=== PATIENT | female | born 1985 | race Caucasian/White ===

== ENCOUNTER → 2016-04-11 | Emergency (ER) | payer OTHER ==
--- NOTE | 2016-04-11 11:09 | ED NURSING NOTES ---
Clinical Report - Nurses [facility] [address] [place] [address] 04/11/2016 9:29 Patient: CARLOS MANUEL LUGO TRIAGE Triage time 09:41. Acuity: LEVEL 4. Chief Complaint: (Non-prod cough x4 days, occasional mild SOB, anterior chest wall pain with coughing. Pt reports fever for the past 2 days, genreralized body aches.). 09:44 04/11/16. SEPSIS SCREEN: Sepsis Screen. Negative (no infection suspected/documented). LINDSEY COMA SCORE: Lindsey Coma Scale: 15- eyes open spontaneously (4); best verbal response- oriented x 4 (5); best motor response- obeys commands (6). --09:46 Saman Walker R.N. 09:41 04/11/16. BP: 130/85. HR: 106. RR: 20. O2 saturation: 100% on room air. Temp: 98.5 F (oral). Pain level now: 09/29. --09:46 Saman Wakler R.N. Weight: 49.8 kg stated. Height/Length: 66 inches Per Patient. BMI: 17.7. --09:45 Saman Walker R.N. Medications Depo-Provera Intramuscular (Once every three months). --09:44 Saman Walker R.N. Allergies NKDA. --09:44 Saman Walker R.N. History Arrived by private vehicle. Historian: patient. 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 PAST MEDICAL HX: Last normal menstrual period was 3 weeks ago. SOCIAL HX: Light tobacco smoker (cigarette)- less than 1/2 a pack per day. No alcohol use or drug use. She has had contact with a sick family member. ABUSE ASSESSMENT: No report of abuse. --09:46 Saman Walker R.N. PROBLEMS: Immunizations. LNMP - Last Normal Menstrual Period. OB History. --09:44 Saman Walker R.N. Interventions To treatment room. --09:46 Saman Walker R.N. PHYSICAL ASSESSMENT 09:48 04/11/16. Ambulatory to room. GENERAL / NEURO / PSYCH: Alert. Oriented X 4. Appears in pain. HEENT: Pupils equal, round and reactive to light. ( sore throat). Mucous membranes are pink. RESPIRATORY: Respirations not labored. Chest wall tenderness (when coughing). Breath sounds within normal limits. ( sinus drainage & congestion). CVS: Capillary refill less than 2 seconds. Pulses within normal limits. GI / : Abdomen soft and nontender and normal bowel sounds. SKIN: Skin intact. Skin is warm and dry. Normal skin turgor. --09:48 Saman Walker R.N. NURSING PROGRESS NOTES 09:48 04/11/16. Reassurance given. Two patient identifiers checked. Call light placed in reach. Bed placed in lowest position. Brakes of bed on. Patient ready for evaluation- chart flagged. --09:48 Saman Walker R.N. late entry -10:13. Head of bed elevated. Reassurance given. The patient is resting quietly. Call light placed in reach. Bed placed in lowest position. Brakes of bed on. ( Obtained Strep and Flu swabs and sent to the Lab.). --11:35 Saman Walker R.N. DISPOSITION / DISCHARGE Condition at departure: improved. No learning barriers present. Discharge instructions provided and reviewed with the patient. Reviewed warnings. Reviewed medication(s). Treatments reviewed. Reviewed referrals. Work note given. Patient verbalized understanding. Written instructions provided in Tongan. The patient was discharged home. She left the Emergency Department ambulatory and via private vehicle. Patient driving. --11:24 Wade Gibbs R.N. 11:22 04/11/16. BP: 117/74. HR: 96. RR: 18. O2 saturation: 98%. Temp: 98.9 F. Pain level now 08/30. --11:24 Wade Gibbs R.N. Departure time: 11:Apr 11 2016. --11:24 Wade Gibbs R.N. Locked/Released at 04/11/2016 11:36 by Saman Walker R.N.
--- NOTE | 2016-04-11 11:09 | ED NURSING NOTES ---
Clinical Report - Nurses [facility] [address] [place] [address] 04/11/2016 9:29 Patient: CARLOS MANUEL LUGO TRIAGE Triage time 09:41. Acuity: LEVEL 4. Chief Complaint: (Non-prod cough x4 days, occasional mild SOB, anterior chest wall pain with coughing. Pt reports fever for the past 2 days, genreralized body aches.). 09:44 04/11/16. SEPSIS SCREEN: Sepsis Screen. Negative (no infection suspected/documented). LINDSEY COMA SCORE: Lindsey Coma Scale: 15- eyes open spontaneously (4); best verbal response- oriented x 4 (5); best motor response- obeys commands (6). --09:46 Saman Walker R.N. 09:41 04/11/16. BP: 130/85. HR: 106. RR: 20. O2 saturation: 100% on room air. Temp: 98.5 F (oral). Pain level now: 09/29. --09:46 Saman Walker R.N. Weight: 49.8 kg stated. Height/Length: 66 inches Per Patient. BMI: 17.7. --09:45 Saman Walker R.N. Medications Depo-Provera Intramuscular (Once every three months). --09:44 Saman Walker R.N. Allergies NKDA. --09:44 Saman Walker R.N. History Arrived by private vehicle. Historian: patient. 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 PAST MEDICAL HX: Last normal menstrual period was 3 weeks ago. SOCIAL HX: Light tobacco smoker (cigarette)- less than 1/2 a pack per day. No alcohol use or drug use. She has had contact with a sick family member. ABUSE ASSESSMENT: No report of abuse. --09:46 Saman Walker R.N. PROBLEMS: Immunizations. LNMP - Last Normal Menstrual Period. OB History. --09:44 Saman Walker R.N. Interventions To treatment room. --09:46 Saman Walker R.N. PHYSICAL ASSESSMENT 09:48 04/11/16. Ambulatory to room. GENERAL / NEURO / PSYCH: Alert. Oriented X 4. Appears in pain. HEENT: Pupils equal, round and reactive to light. ( sore throat). Mucous membranes are pink. RESPIRATORY: Respirations not labored. Chest wall tenderness (when coughing). Breath sounds within normal limits. ( sinus drainage & congestion). CVS: Capillary refill less than 2 seconds. Pulses within normal limits. GI / : Abdomen soft and nontender and normal bowel sounds. SKIN: Skin intact. Skin is warm and dry. Normal skin turgor. --09:48 Saman Walker R.N. NURSING PROGRESS NOTES 09:48 04/11/16. Reassurance given. Two patient identifiers checked. Call light placed in reach. Bed placed in lowest position. Brakes of bed on. Patient ready for evaluation- chart flagged. --09:48 Saman Walker R.N. late entry -10:13. Head of bed elevated. Reassurance given. The patient is resting quietly. Call light placed in reach. Bed placed in lowest position. Brakes of bed on. ( Obtained Strep and Flu swabs and sent to the Lab.). --11:35 Saman Walker R.N. DISPOSITION / DISCHARGE Condition at departure: improved. No learning barriers present. Discharge instructions provided and reviewed with the patient. Reviewed warnings. Reviewed medication(s). Treatments reviewed. Reviewed referrals. Work note given. Patient verbalized understanding. Written instructions provided in Ecuadorean. The patient was discharged home. She left the Emergency Department ambulatory and via private vehicle. Patient driving. --11:24 Wade Gibbs R.N. 11:22 04/11/16. BP: 117/74. HR: 96. RR: 18. O2 saturation: 98%. Temp: 98.9 F. Pain level now 08/30. --11:24 Wade Gibbs R.N. Departure time: 11:Apr 11 2016. --11:24 Wade Gibbs R.N. Locked/Released at 04/11/2016 11:36 by Saman Walker R.N.
--- NOTE | 2016-04-11 11:09 | ED CLINICAL REPORT ---
Clinical Report - Physicians/Mid Levels [facility] [address] [place] [place] [address] 04/11/2016 9:29 Patient: CARLOS MANUEL LUGO Time Seen: 09:45; initial patient contact. Arrived- By private vehicle. Historian- patient. HISTORY OF PRESENT ILLNESS Chief Complaint: "FLU". This started about 4 days ago and is still present. Illness not described as mild. The patient has had a cough, chest discomfort, a sore throat, nasal congestion and sinus pressure. She has had sinus drainage, fever, chills, muscle aches and a nasal discharge. No sputum production, difficulty breathing, chest pain or ear pain. Additional history - No known contact with a sick individual. Similar symptoms previously: None. Recent medical care: Not recently seen/assessed. REVIEW OF SYSTEMS No headache, nausea, vomiting or diarrhea. All systems otherwise negative, except as recorded above. PAST HISTORY See nurses notes. Surgeries: No history of previous surgery. Additional Surgeries: no known surgeries. Medications: Depo-Provera Intramuscular (Once every three months). Allergies: NKDA. SOCIAL HISTORY Current every day smoker. No alcohol use. PHYSICAL EXAM Appearance: Alert. No acute distress. Head: Tenderness present to percussion/palpation of the sinuses. Eyes: Eyes normal inspection. ENT: Ears normal. Mild generalized pharyngeal erythema with right tonsillar swelling and left tonsillar swelling. Neck: No lymphadenopathy. CVS: Normal heart rate and rhythm. Heart sounds normal. Respiratory: No respiratory distress. Breath sounds normal. Skin: Skin warm and dry. Normal skin color. No rash. Extremities: Extremities exhibit normal ROM. No calf tenderness. No lower extremity edema. Neuro: Oriented X 3. LABS, X-RAYS, AND EKG Laboratory Tests: Culture, Strep Screen: (LESA: 04/11/2016 10:10) ( MsgRcvd 04/11/2016 10:33) Final results Test Result Flag Units (Reference) RAPID STREP SCREEN - THROAT DATE: 04/11/16 NEGATIVE SCREEN: RAPID STREP SCREEN NEGATIVE; CONFIRMATION TO FOLLOW Rapid Influenza Screen: (LESA: 04/11/2016 10:10) ( MsgRcvd 04/11/2016 10:42) Final results SPECIMEN DESCRIPTION: ... Test Result Flag Units (Reference) RAPID INFLUENZA SCREEN DATE: 04/11/16 INFLUENZA A: NEGATIVE SCREEN FOR INFLUENZA A INFLUENZA B: NEGATIVE SCREEN FOR INFLUENZA B . PROGRESS AND PROCEDURES Disposition: Discharged home in good condition. Condition: good. CLINICAL IMPRESSION Acute frontal sinusitis INSTRUCTIONS Prescription Medications: Zithromax Tri-Aram 500 mg tablets: Take according to package instructions. Total course 3 days. No refills. Substitution is permissible. Flonase nasal spray: 2 sprays to each nostril daily. Dispense one (1) unit. No refills. Substitution is permissible Follow-up: Follow up with your doctor in about three days. (Electronically signed by Ahmet Barrett Dr. 04/11/2016 21:56)
--- NOTE | 2016-04-11 11:09 | ED CLINICAL REPORT ---
Clinical Report - Physicians/Mid Levels [facility] [address] [place] [place] [address] 04/11/2016 9:29 Patient: CARLOS MANUEL LUGO Time Seen: 09:45; initial patient contact. Arrived- By private vehicle. Historian- patient. HISTORY OF PRESENT ILLNESS Chief Complaint: "FLU". This started about 4 days ago and is still present. Illness not described as mild. The patient has had a cough, chest discomfort, a sore throat, nasal congestion and sinus pressure. She has had sinus drainage, fever, chills, muscle aches and a nasal discharge. No sputum production, difficulty breathing, chest pain or ear pain. Additional history - No known contact with a sick individual. Similar symptoms previously: None. Recent medical care: Not recently seen/assessed. REVIEW OF SYSTEMS No headache, nausea, vomiting or diarrhea. All systems otherwise negative, except as recorded above. PAST HISTORY See nurses notes. Surgeries: No history of previous surgery. Additional Surgeries: no known surgeries. Medications: Depo-Provera Intramuscular (Once every three months). Allergies: NKDA. SOCIAL HISTORY Current every day smoker. No alcohol use. PHYSICAL EXAM Appearance: Alert. No acute distress. Head: Tenderness present to percussion/palpation of the sinuses. Eyes: Eyes normal inspection. ENT: Ears normal. Mild generalized pharyngeal erythema with right tonsillar swelling and left tonsillar swelling. Neck: No lymphadenopathy. CVS: Normal heart rate and rhythm. Heart sounds normal. Respiratory: No respiratory distress. Breath sounds normal. Skin: Skin warm and dry. Normal skin color. No rash. Extremities: Extremities exhibit normal ROM. No calf tenderness. No lower extremity edema. Neuro: Oriented X 3. LABS, X-RAYS, AND EKG Laboratory Tests: Culture, Strep Screen: (LESA: 04/11/2016 10:10) ( MsgRcvd 04/11/2016 10:33) Final results Test Result Flag Units (Reference) RAPID STREP SCREEN - THROAT DATE: 04/11/16 NEGATIVE SCREEN: RAPID STREP SCREEN NEGATIVE; CONFIRMATION TO FOLLOW Rapid Influenza Screen: (LESA: 04/11/2016 10:10) ( MsgRcvd 04/11/2016 10:42) Final results SPECIMEN DESCRIPTION: ... Test Result Flag Units (Reference) RAPID INFLUENZA SCREEN DATE: 04/11/16 INFLUENZA A: NEGATIVE SCREEN FOR INFLUENZA A INFLUENZA B: NEGATIVE SCREEN FOR INFLUENZA B . PROGRESS AND PROCEDURES Disposition: Discharged home in good condition. Condition: good. CLINICAL IMPRESSION Acute frontal sinusitis INSTRUCTIONS Prescription Medications: Zithromax Tri-Aram 500 mg tablets: Take according to package instructions. Total course 3 days. No refills. Substitution is permissible. Flonase nasal spray: 2 sprays to each nostril daily. Dispense one (1) unit. No refills. Substitution is permissible Follow-up: Follow up with your doctor in about three days. (Electronically signed by Ahmet Barrett Dr. 04/11/2016 21:56)
--- NOTE | 2016-04-11 11:10 | ED ORDER SUMMARY ---
..... Patient: CARLOS MANUEL LUGO OrderSheet [facility] VisitID: [id number] [address] [place] [address] 30y, F Registration Date/Time: 04/11/2016 ORDER SHEET Weight: 49.8 kg (stated) Allergies: NKDA GENERAL ORDERS: Rapid Influenza Screen (Nasal Pharyngeal) (...) Urgent (10:10 04/11/2016 Cierra Vieira) (10:13 Cinthya Vogel.) Culture, Strep Screen Urgent (10:10 04/11/2016 Cierra Vieira) (10:13 Cinthya Fagan.Naveen.) MEDICATION ORDERS: IV FLUIDS: ORDER SHEET NOTES: [Electronically signed by Saman Walker R.N. (11:36 04/11/2016)] [Electronically signed by Ahmet Barrett Dr. (21:56 04/11/2016)] [Electronically locked/signed by Saman Walker R.N. (11:36 04/11/2016)]
--- NOTE | 2016-04-11 11:10 | ED ORDER SUMMARY ---
..... Patient: CARLOS MANUEL LUGO OrderSheet [facility] VisitID: [id number] [address] [place] [address] 30y, F Registration Date/Time: 04/11/2016 ORDER SHEET Weight: 49.8 kg (stated) Allergies: NKDA GENERAL ORDERS: Rapid Influenza Screen (Nasal Pharyngeal) (...) Urgent (10:10 04/11/2016 Cierra Vieira) (10:13 Cinthya Vogel.) Culture, Strep Screen Urgent (10:10 04/11/2016 Cierra Vieira) (10:13 Cinthya Fagan.Naveen.) MEDICATION ORDERS: IV FLUIDS: ORDER SHEET NOTES: [Electronically signed by Saman Walker R.N. (11:36 04/11/2016)] [Electronically signed by Ahmet Barrett Dr. (21:56 04/11/2016)] [Electronically locked/signed by Saman Walker R.N. (11:36 04/11/2016)]
--- NOTE | 2016-04-11 21:56 | ED DISCHARGE INSTRUCTIONS ---
Patient: CARLOS MANUEL LUGO General Instructions [facility] VisitID: [id number] [place] [address] 30y, F Registration Date/Time: 04/11/2016 Acute frontal sinusitis INSTRUCTIONS Prescription Medications: Zithromax Tri-Aram 500 mg tablets: Take according to package instructions. Total course 3 days. No refills. Substitution is permissible. Flonase nasal spray: 2 sprays to each nostril daily. Dispense one (1) unit. No refills. Substitution is permissible Follow-up: Follow up with your doctor in about three days. ADDITIONAL INFORMATION Sinusitis [Abx Tx] The sinuses are air-filled spaces within the bones of the face. They connect to the inside of the nose. Sinusitis is an inflammation of the tissue lining the sinus cavity. Sinus inflammation can occur during a cold or hay-fever (allergies to pollens and other particles in the air) and cause symptoms of sinus congestion and fullness. A sinus infection causes fever, headache and facial pain. There is usually green or yellow drainage from the nose or into the back of the throat (post-nasal drip). Antibiotics are prescribed to treat this condition. Home Care: Drink plenty of water, hot tea, and other liquids to stay well hydrated. This thins the mucus and promotes sinus drainage. Apply heat to the painful areas of the face. Use a towel soaked in hot water. Or, product marketing analyst the shower and direct the hot spray onto your face. This is a good way to inhale warm water vapor and get heat on your face at the same time. (Cover your mouth and nose with your hands so you can still breathe as you do this.) Use a vaporizer with products such as Vicks VapoRub (contains menthol) at night. Suck on peppermint, menthol or eucalyptus hard candies during the day. An expectorant containing guaifenesin (such as Robitussin), helps to thin the mucus and promote drainage from the sinuses. Tgox-qxm-dsrioce decongestants may be used unless a similar medicine was prescribed. Nasal sprays work the fastest. Use one that contains phenylephrine (Reed-synephrine, Sinex and others) or oxymetazoline (Afrin). First blow the nose gently to remove mucus, then apply the drops. Do not use these medicines more often than directed on the label or for more than three days or symptoms may worsen. You may also use tablets containing pseudoephedrine (Sudafed). Many sinus remedies combine ingredients, which may increase side effects. Read the labels or ask the pharmacist for help. NOTE: Persons with high blood pressure should not use decongestants. They can raise blood pressure. Antihistamines are useful if allergies are a cause of your sinusitis. The mildest one is chlorpheniramine (available without a prescription). The dose for adults is 8-12mg three times a day. [NOTE: Do not use chlorpheniramine if you have glaucoma or if you are a man with trouble urinating due to an enlarged prostate.] Claritin (loratidine) is an antihistamine that causes less drowsiness and is a good alternative for daytime use. Do not use nasal rinses or irrigation during an acute sinus infection, unless advised by your doctor. Rinsing may spread the infection to other sinuses. You may use acetaminophen (Tylenol) or ibuprofen (Motrin, Advil) to control pain, unless another pain medicine was prescribed. [ NOTE: If you have chronic liver or kidney disease or ever had a stomach ulcer, talk with your doctor before using these medicines.] (Aspirin should never be used in anyone under 18 years of age who is ill with a fever. It may cause severe liver damage.) Finish the full course, even if you are feeling better after a few days. Follow Up with your doctor or this facility in one week or as instructed by our staff if not improving. Get Prompt Medical Attention if any of the following occur: Facial pain or headache becomes more severe Stiff neck Unusual drowsiness or confusion, or not acting like your normal self Swelling of the forehead or eyelids Vision problems including blurred or double vision Fever of 100.4F (38C) or higher, or as directed by your healthcare provider Seizure Azithromycin Oral tablet What is this medicine? AZITHROMYCIN (az ith isaiah MYE sin) is a macrolide antibiotic. It is used to treat or prevent certain kinds of bacterial infections. It will not work for colds, flu, or other viral infections. How should I use this medicine? Take this medicine by mouth with a full glass of water. Follow the directions on the prescription label. The tablets can be taken with food or on an empty stomach. If the medicine upsets your stomach, take it with food. Take your medicine at regular intervals. Do not take your medicine more often than directed. Take all of your medicine as directed even if you think your are better. Do not skip doses or stop your medicine early. Talk to your substitute crossing guard regarding the use of this medicine in children. Special care may be needed. What side effects may I notice from receiving this medicine? Side effects that you should report to your doctor or health healthcare financial analyst as soon as possible: allergic reactions like skin rash, itching or hives, swelling of the face, lips, or tongue confusion, nightmares or hallucinations dark urine difficulty breathing hearing loss irregular heartbeat or chest pain pain or difficulty passing urine redness, blistering, peeling or loosening of the skin, including inside the mouth white patches or sores in the mouth yellowing of the eyes or skin Side effects that usually do not require medical attention (report to your doctor or health healthcare financial analyst if they continue or are bothersome): diarrhea dizziness, drowsiness headache stomach upset or vomiting tooth discoloration vaginal irritation What may interact with this medicine? Do not take this medicine with any of the following medications: lincomycin This medicine may also interact with the following medications: amiodarone antacids cyclosporine digoxin magnesium nelfinavir phenytoin warfarin What if I miss a dose? If you miss a dose, take it as soon as you can. If it is almost time for your next dose, take only that dose. Do not take double or extra doses. Where should I keep my medicine? Keep out of the reach of children. Store at room temperature between 15 and 30 degrees C (59 and 86 degrees F). Throw away any unused medicine after the expiration date. What should I tell my health care provider before I take this medicine? They need to know if you have any of these conditions: kidney disease liver disease irregular heartbeat or heart disease an unusual or allergic reaction to azithromycin, erythromycin, other macrolide antibiotics, foods, dyes, or preservatives or trying to get breast-feeding What should I watch for while using this medicine? Tell your doctor or health healthcare financial analyst if your symptoms do not improve. Do not treat diarrhea with over the counter products. Contact your doctor if you have diarrhea that lasts more than 2 days or if it is severe and watery. This medicine can make you more sensitive to the sun. Keep out of the sun. If you cannot avoid being in the sun, wear protective clothing and use sunscreen. Do not use sun lamps or tanning beds/booths. Fluticasone Propionate Nasal spray, solution What is this medicine? FLUTICASONE (floo TIK a sone) is a corticosteroid. It helps decrease inflammation in your nose. This medicine is used to treat the symptoms of allergies like sneezing, itching, and runny or stuffy nose. How should I use this medicine? This medicine is for use in the nose. Follow the directions on your prescription label. This medicine works best if used regularly. Do not use more often than directed. Make sure that you are using your nasal spray correctly. Ask you doctor or health care provider if you have any questions. Talk to your substitute crossing guard regarding the use of this medicine in children. While this drug may be prescribed for children as young as 4 years old for selected conditions, precautions do apply. What side effects may I notice from receiving this medicine? Side effects that you should report to your doctor or health healthcare financial analyst as soon as possible: allergic reactions like skin rash, itching or hives, swelling of the face, lips, or tongue changes in vision flu-like symptoms white patches or sores in the mouth or nose Side effects that usually do not require medical attention (report to your doctor or health healthcare financial analyst if they continue or are bothersome): burning or irritation inside the nose or throat cough headache nosebleed unusual taste or smell What may interact with this medicine? ketoconazole metyrapone some medicines for HIV vaccines What if I miss a dose? If you miss a dose, use it as soon as you remember. If it is almost time for your next dose, use only that dose and continue with your regular schedule. Do not use double or extra doses. Where should I keep my medicine? Keep out of the reach of children. Store at room temperature between 15 and 30 degrees C (59 and 86 degrees F). Throw away any unused medicine after the expiration date. What should I tell my health care provider before I take this medicine? They need to know if you have any of these conditions: infection, like tuberculosis, herpes, or fungal infection recent surgery on nose or sinuses taking corticosteroid by mouth an unusual or allergic reaction to fluticasone, steroids, other medicines, foods, dyes, or preservatives or trying to get breast-feeding What should I watch for while using this medicine? Visit your doctor or health healthcare financial analyst for regular checks on your progress. Some symptoms may improve within 12 hours after starting use. Check with your doctor or health healthcare financial analyst if there is no improvement in your condition after 3 weeks of use. Do not come in contact with people who have chickenpox or the measles while you are taking this medicine. If you do, call your doctor right away. You have been given the following additional information: Sinusitis, Abx Tx Azithromycin Oral tablet Fluticasone Propionate Nasal spray, solution (Electronically signed by Ahmet Barrett Dr. 04/11/2016 21:56)
--- NOTE | 2016-04-11 21:56 | ED DISCHARGE INSTRUCTIONS ---
Patient: CARLOS MANUEL LUGO General Instructions [facility] VisitID: [id number] [place] [address] 30y, F Registration Date/Time: 04/11/2016 Acute frontal sinusitis INSTRUCTIONS Prescription Medications: Zithromax Tri-Aram 500 mg tablets: Take according to package instructions. Total course 3 days. No refills. Substitution is permissible. Flonase nasal spray: 2 sprays to each nostril daily. Dispense one (1) unit. No refills. Substitution is permissible Follow-up: Follow up with your doctor in about three days. ADDITIONAL INFORMATION Sinusitis [Abx Tx] The sinuses are air-filled spaces within the bones of the face. They connect to the inside of the nose. Sinusitis is an inflammation of the tissue lining the sinus cavity. Sinus inflammation can occur during a cold or hay-fever (allergies to pollens and other particles in the air) and cause symptoms of sinus congestion and fullness. A sinus infection causes fever, headache and facial pain. There is usually green or yellow drainage from the nose or into the back of the throat (post-nasal drip). Antibiotics are prescribed to treat this condition. Home Care: Drink plenty of water, hot tea, and other liquids to stay well hydrated. This thins the mucus and promotes sinus drainage. Apply heat to the painful areas of the face. Use a towel soaked in hot water. Or, soft work cigar machine operator the shower and direct the hot spray onto your face. This is a good way to inhale warm water vapor and get heat on your face at the same time. (Cover your mouth and nose with your hands so you can still breathe as you do this.) Use a vaporizer with products such as Vicks VapoRub (contains menthol) at night. Suck on peppermint, menthol or eucalyptus hard candies during the day. An expectorant containing guaifenesin (such as Robitussin), helps to thin the mucus and promote drainage from the sinuses. Sjfk-gmp-zonwkvo decongestants may be used unless a similar medicine was prescribed. Nasal sprays work the fastest. Use one that contains phenylephrine (Reed-synephrine, Sinex and others) or oxymetazoline (Afrin). First blow the nose gently to remove mucus, then apply the drops. Do not use these medicines more often than directed on the label or for more than three days or symptoms may worsen. You may also use tablets containing pseudoephedrine (Sudafed). Many sinus remedies combine ingredients, which may increase side effects. Read the labels or ask the pharmacist for help. NOTE: Persons with high blood pressure should not use decongestants. They can raise blood pressure. Antihistamines are useful if allergies are a cause of your sinusitis. The mildest one is chlorpheniramine (available without a prescription). The dose for adults is 8-12mg three times a day. [NOTE: Do not use chlorpheniramine if you have glaucoma or if you are a man with trouble urinating due to an enlarged prostate.] Claritin (loratidine) is an antihistamine that causes less drowsiness and is a good alternative for daytime use. Do not use nasal rinses or irrigation during an acute sinus infection, unless advised by your doctor. Rinsing may spread the infection to other sinuses. You may use acetaminophen (Tylenol) or ibuprofen (Motrin, Advil) to control pain, unless another pain medicine was prescribed. [ NOTE: If you have chronic liver or kidney disease or ever had a stomach ulcer, talk with your doctor before using these medicines.] (Aspirin should never be used in anyone under 18 years of age who is ill with a fever. It may cause severe liver damage.) Finish the full course, even if you are feeling better after a few days. Follow Up with your doctor or this facility in one week or as instructed by our staff if not improving. Get Prompt Medical Attention if any of the following occur: Facial pain or headache becomes more severe Stiff neck Unusual drowsiness or confusion, or not acting like your normal self Swelling of the forehead or eyelids Vision problems including blurred or double vision Fever of 100.4F (38C) or higher, or as directed by your healthcare provider Seizure Azithromycin Oral tablet What is this medicine? AZITHROMYCIN (az ith isaiah MYE sin) is a macrolide antibiotic. It is used to treat or prevent certain kinds of bacterial infections. It will not work for colds, flu, or other viral infections. How should I use this medicine? Take this medicine by mouth with a full glass of water. Follow the directions on the prescription label. The tablets can be taken with food or on an empty stomach. If the medicine upsets your stomach, take it with food. Take your medicine at regular intervals. Do not take your medicine more often than directed. Take all of your medicine as directed even if you think your are better. Do not skip doses or stop your medicine early. Talk to your remote sensing scientist regarding the use of this medicine in children. Special care may be needed. What side effects may I notice from receiving this medicine? Side effects that you should report to your doctor or health health care law specialist as soon as possible: allergic reactions like skin rash, itching or hives, swelling of the face, lips, or tongue confusion, nightmares or hallucinations dark urine difficulty breathing hearing loss irregular heartbeat or chest pain pain or difficulty passing urine redness, blistering, peeling or loosening of the skin, including inside the mouth white patches or sores in the mouth yellowing of the eyes or skin Side effects that usually do not require medical attention (report to your doctor or health health care law specialist if they continue or are bothersome): diarrhea dizziness, drowsiness headache stomach upset or vomiting tooth discoloration vaginal irritation What may interact with this medicine? Do not take this medicine with any of the following medications: lincomycin This medicine may also interact with the following medications: amiodarone antacids cyclosporine digoxin magnesium nelfinavir phenytoin warfarin What if I miss a dose? If you miss a dose, take it as soon as you can. If it is almost time for your next dose, take only that dose. Do not take double or extra doses. Where should I keep my medicine? Keep out of the reach of children. Store at room temperature between 15 and 30 degrees C (59 and 86 degrees F). Throw away any unused medicine after the expiration date. What should I tell my health care provider before I take this medicine? They need to know if you have any of these conditions: kidney disease liver disease irregular heartbeat or heart disease an unusual or allergic reaction to azithromycin, erythromycin, other macrolide antibiotics, foods, dyes, or preservatives or trying to get breast-feeding What should I watch for while using this medicine? Tell your doctor or health health care law specialist if your symptoms do not improve. Do not treat diarrhea with over the counter products. Contact your doctor if you have diarrhea that lasts more than 2 days or if it is severe and watery. This medicine can make you more sensitive to the sun. Keep out of the sun. If you cannot avoid being in the sun, wear protective clothing and use sunscreen. Do not use sun lamps or tanning beds/booths. Fluticasone Propionate Nasal spray, solution What is this medicine? FLUTICASONE (floo TIK a sone) is a corticosteroid. It helps decrease inflammation in your nose. This medicine is used to treat the symptoms of allergies like sneezing, itching, and runny or stuffy nose. How should I use this medicine? This medicine is for use in the nose. Follow the directions on your prescription label. This medicine works best if used regularly. Do not use more often than directed. Make sure that you are using your nasal spray correctly. Ask you doctor or health care provider if you have any questions. Talk to your remote sensing scientist regarding the use of this medicine in children. While this drug may be prescribed for children as young as 4 years old for selected conditions, precautions do apply. What side effects may I notice from receiving this medicine? Side effects that you should report to your doctor or health health care law specialist as soon as possible: allergic reactions like skin rash, itching or hives, swelling of the face, lips, or tongue changes in vision flu-like symptoms white patches or sores in the mouth or nose Side effects that usually do not require medical attention (report to your doctor or health health care law specialist if they continue or are bothersome): burning or irritation inside the nose or throat cough headache nosebleed unusual taste or smell What may interact with this medicine? ketoconazole metyrapone some medicines for HIV vaccines What if I miss a dose? If you miss a dose, use it as soon as you remember. If it is almost time for your next dose, use only that dose and continue with your regular schedule. Do not use double or extra doses. Where should I keep my medicine? Keep out of the reach of children. Store at room temperature between 15 and 30 degrees C (59 and 86 degrees F). Throw away any unused medicine after the expiration date. What should I tell my health care provider before I take this medicine? They need to know if you have any of these conditions: infection, like tuberculosis, herpes, or fungal infection recent surgery on nose or sinuses taking corticosteroid by mouth an unusual or allergic reaction to fluticasone, steroids, other medicines, foods, dyes, or preservatives or trying to get breast-feeding What should I watch for while using this medicine? Visit your doctor or health health care law specialist for regular checks on your progress. Some symptoms may improve within 12 hours after starting use. Check with your doctor or health health care law specialist if there is no improvement in your condition after 3 weeks of use. Do not come in contact with people who have chickenpox or the measles while you are taking this medicine. If you do, call your doctor right away. You have been given the following additional information: Sinusitis, Abx Tx Azithromycin Oral tablet Fluticasone Propionate Nasal spray, solution (Electronically signed by Ahmet Barrett Dr. 04/11/2016 21:56)
--- NOTE | 2016-04-11 21:56 | ED MAR SUMMARY ---
..... Medication Administration Record [facility] [address] [place], [place] [id number] Patient: CARLOS MANUEL LUGO Visit ID: [id number] 30y, F Weight: 49.8 kg Height/Length: 66 in BMI: 17.7 ALLERGIES: NKDA
--- NOTE | 2016-04-11 21:56 | ED MAR SUMMARY ---
..... Medication Administration Record [facility] [address] [place], [place] [id number] Patient: CARLOS MANUEL LUGO Visit ID: [id number] 30y, F Weight: 49.8 kg Height/Length: 66 in BMI: 17.7 ALLERGIES: NKDA
--- NOTE | 2016-04-11 21:56 | ED MED RECONCILIATION SUMMARY ---
Patient: CARLOS MANUEL LUGO Medication Reconciliation Report [facility] VisitID: [id number] [address] [place] [address] 30y, F Registration Date/Time: 04/11/2016 Weight: 49.8 kg Height/Length: 66 in. BMI: 17.7 ALLERGIES: NKDA The patient's Home Medications are listed below: THE FOLLOWING MEDICATIONS NEED TO BE RECONCILED: Depo-Provera Intramuscular, Once every three months The source(s) of the original Home Medication information: Not obtained. The following Medications were given to the patient in the Emergency Department: None. The following Medications were prescribed to the patient: Zithromax Tri-Aram 500 mg tablets: Take according to package instructions. Total course 3 days. No refills. Substitution is permissible. -- Ahmet Barrett Dr. Flonasaroldo nasal spray: 2 sprays to each nostril daily. Dispense one (1) unit. No refills. Substitution is permissible -- Ahmet Barrett Dr.
--- NOTE | 2016-04-11 21:56 | ED MED RECONCILIATION SUMMARY ---
Patient: CARLOS MANUEL LUGO Medication Reconciliation Report [facility] VisitID: [id number] [address] [place] [address] 30y, F Registration Date/Time: 04/11/2016 Weight: 49.8 kg Height/Length: 66 in. BMI: 17.7 ALLERGIES: NKDA The patient's Home Medications are listed below: THE FOLLOWING MEDICATIONS NEED TO BE RECONCILED: Depo-Provera Intramuscular, Once every three months The source(s) of the original Home Medication information: Not obtained. The following Medications were given to the patient in the Emergency Department: None. The following Medications were prescribed to the patient: Zithromax Tri-Aram 500 mg tablets: Take according to package instructions. Total course 3 days. No refills. Substitution is permissible. -- Ahmet Barrett Dr. Flonasaroldo nasal spray: 2 sprays to each nostril daily. Dispense one (1) unit. No refills. Substitution is permissible -- Ahmet Barrett Dr.
== END ==
LOC: ED SRH 09:28
DX: J01.10 Acute frontal sinusitis, unspecified (principal); F17.200 Nicotine dependence, unspecified, uncomplicated
CPT/HCPCS: 90154; 90159; 91400